=== PATIENT | female | born 1990 | race Hispanic/Latino ===

== ENCOUNTER 2018-01-17 16:49 | Inpatient (IN) | payer OTHER ==
[2018-01-17 17:17] VITALS: BMI 41.0
--- NOTE | 2018-01-17 17:42 | OBADHP ---
Datetime: 01/17/2018 17:36 Admit Comment, IP Provider: 27 yo at 39+2 presents for IOL for oligo. Denies leaking of flu id, reports good movement. Mild, irregular contractions reported. Feeling good, denies pain. Resting comfortably. Pelvic Type - PN: Adequate Extremities - PN: Normal Abdomen - PN: Normal Back - PN: Normal Breast - PN: Normal Lungs - PN: Normal Heart - PN: Normal Thyroid - PN: Normal Neurologic - PN: Normal HEENT - PN: Normal General - PN: Normal Presentation-Admit: Vertex FHR - Baseline A Provider: 160s Membranes, Provider: Intact Contraction Comments Provider: mild IP Hx Assessment: The History has been Reviewed and is Current Vital Signs Provider: Reviewed IP Chief Complaint: Scheduled induction of labor NICHD Variability Prov Fetus A: Moderate 6-25bpm NICHD Accel Fetus A IP Provider: 15X15 FHR Category Provider Fetus A: Category I NICHD Decel Fetus A IP Provider: None Dilatation, Provider: 2 Effacement, Provider: 0 Station, Provider: -3 Genitourinary Exam: Normal DTRs - PN: Normal IP Adm Impression: Term, intrauterine ; No Active Labor IP Admit Plan: Admit to unit; Initiate labor protocol; Initiate labor induction protocol
[2018-01-17] MEDS ORDERED: Lactated Ringer's 1,000 ML IV SCH (17:45)
--- NOTE | 2018-01-17 17:47 | OBPN ---
Datetime: 01/17/2018 17:45 IP Procedures Other: cEFM IP Progress Plan Other: 1 Liter LR IVFB and LR @ 125 ml/hr IP Progress Impression Other: tachycardia Datetime: 01/17/2018 17:36 Membranes, Provider: Intact Contraction Comments Provider: mild FHR - Baseline A Provider: 160s Presentation-Admit: Vertex Vital Signs Provider: Reviewed NICHD Accel Fetus A IP Provider: 15X15 FHR Category Provider Fetus A: Category I NICHD Variability Prov Fetus A: Moderate 6-25bpm Dilatation, Provider: 2 Effacement, Provider: 0 Station, Provider: -3 NICHD Decel Fetus A IP Provider: None
[2018-01-17 18:11] LABS: BASO # 0.1 K/uL (0.0-0.2); BASO % 0.9 % (0.0-2.0); EOS % 0.4 % (0.0-4.0); HEMOGLOBIN 11.1 g/dL (12.0-16.0); LYMPH # 1.6 K/uL (1.0-4.3); LYMPH % 15.5 % (20.0-40.0); MEAN CELL VOLUME 77.3 fl (81.0-99.0); MEAN CORPUSCULAR HEMOGLOBIN 25.7 pg (27.0-31.0); MEAN CORPUSCULAR HGB CONC 33.2 g/dL (33.0-37.0); MEAN PLATELET VOLUME 8.9 fl (7.2-11.7); MONO # 0.6 K/uL (0.0-0.8); MONO % 5.8 % (0.0-10.0); NEUT # 7.9 K/uL (1.8-7.0); NEUT % 77.4 % (50.0-75.0); RBC 4.31 Mil/uL (3.80-5.20); RED CELL DISTRIBUTION WIDTH 15.3 % (11.5-14.5); WHITE BLOOD COUNT 10.2 K/uL (4.8-10.8)
[2018-01-17] MEDS: Lactated Ringer's 1,000 ML IV SCH (19:34)
--- NOTE | 2018-01-17 22:47 | OBPN ---
Datetime: 01/17/2018 22:38 IP Progress Impression Other: induction of labor IP Progress Impression: Reassuring heart rate IP Informed Consent Obtain: Induction of Labor IP Progress Plan: Induction Membranes, Provider: Intact Contraction Comments Provider: irregular and mild every 3-4 minutes. FHR - Baseline A Provider: 133 Presentation-Admit: Vertex IP Progress Note Comment: continues to feel mild cramping. no bleeding, no leaking. discussed plan to start cytotec and take sleeping pill. patient agrees with plan Vital Signs Provider: Reviewed; Within Normal Limits FHR Category Provider Fetus A: Category I NICHD Variability Prov Fetus A: Moderate 6-25bpm NICHD Decel Fetus A IP Provider: None
--- NOTE | 2018-01-18 00:02 | OBPN ---
Datetime: 01/17/2018 23:56 Membranes, Provider: Intact Contraction Comments Provider: irregular, mild FHR - Baseline A Provider: 132 IP Progress Note Comment: cytotec [address] in posterior vagina. Patient medicated with Phenerga n 50mg po. will sleep for a while. NICHD Accel Fetus A IP Provider: 15X15 FHR Category Provider Fetus A: Category I NICHD Variability Prov Fetus A: Moderate 6-25bpm Dilatation, Provider: 2 Effacement, Provider: 30 Station, Provider: -3 NICHD Decel Fetus A IP Provider: None
[2018-01-18] MEDS ORDERED: Alum-Mag Hydrox-Simethicone Susp (30 mL) PO PRN (00:03)
[2018-01-18] MEDS: Lactated Ringer's 1,000 ML IV SCH (04:00)
[2018-01-18] MEDS ORDERED: Oxytocin 10 Units/ml Inj ONE (08:18)
--- NOTE | 2018-01-18 08:18 | OBPN ---
Datetime: 01/18/2018 08:06 IP Progress Impression: Normal progression of labor IP Progress Plan: Continue present management Membranes, Provider: Intact Contraction Comments Provider: q-3" 50 seconds moderate to palpation FHR - Baseline A Provider: 140' IP Progress Note Comment: labor s strong. toleratng well. desires tub for pain management. good p rogress of labor with nduction for oligo. fht's very reassurng , no variable decelerations noted. w ill continue to montor closely. Vital Signs Provider: Within Normal Limits FHR Category Provider Fetus A: Category I NICHD Variability Prov Fetus A: Moderate 6-25bpm Dilatation, Provider: 4 Effacement, Provider: 90 Station, Provider: -2 NICHD Decel Fetus A IP Provider: None
[2018-01-18] MEDS ORDERED: Oxytocin 10 Units/ml Inj IM ONE ×2 (08:43→09:39)
[2018-01-18] MEDS ORDERED: Benzocaine/Menthol SPRAY TOP PRN ×2 (09:38→13:04)
--- NOTE | 2018-01-18 11:34 | OBDS ---
DELIVERY PERSONNEL Nurse Water Inspector Certified: Angelica Bradford CNM Delivery Doctor: idalia Bradford CNM Scrub Nurse: Bridget Denis Regional Guide: Terri Pacheco RN MATERNAL INFORMATION Delivery Anesthesia: None Medications in Delivery: Pitocin 10mg IM Estimated Blood Loss (ml): 350 Placenta Cultured: No Maternal Complications: None Provider Comments: progressed quickly in labor to of viable female over intact perineum. waterbirth. baby with spontaneous cry, good tone. apgars 9 and 9. 1st stage of labor 3h23m, 2nd st age 10min 3rd stage 10 min placenta delivered spontaneously and intact. ebl 350 cc. baby with paren ts to [place]ager. LABOR SUMMARY EDC: 01/23/2018 00:00 No. Babies in Womb: 1 Attempted: No Labor Anesthesia: None LABOR INFORMATION Reason for Induction: Oligohydramnios Reason for Induction Other: onset of labor 01/18/18 @ 0500 Complete Dilatation: 01/18/2018 08:23 Cervical Ripening Agents: Cytotec @ 50 mcg PO Oxytocin: N/A Group B Beta Strep: Negative Antibiotics # of Doses: 0 Steroids Given: None Reason Steroids Not Administered: Not Applicable MEMBRANES Membranes Rupture Method: Spontaneous Rupture of Membranes: 01/18/2018 08:23 Length of Rupture (hrs): 0.17 Amniotic Fluid Color: Clear Amniotic Fluid Amount: Moderate Amniotic Fluid Odor: Normal STAGES OF LABOR Stage 2 hrs: 0 Stage 2 min: 10 Stage 3 hrs: 0 Stage 3 min: 10 VAGINAL DELIVERY Episiotomy: None Laceration Extension: N/A Laceration Type: None Laceration Repair: Not Applicable Initial Vag Sponge Count: 5 Final Vag Sponge Count: 5 Initial Vag Sharps Count: 0 Final Vag Sharps Count: 0 Sponge Count Correct: Yes Sharps Count Correct: N/A BABY A INFORMATION Delivery Date/Time: 01/18/2018 08:33 Method of Delivery: Vaginal Born in Route : No : N/A Forceps: N/A Vacuum Extraction: N/A Shoulder Dystocia : No SHOULDER DYSTOCIA BABY A Delivery Date/Time: 01/18/2018 08:33 PRESENTATION/POSITION BABY A Presentation: Cephalic Cephalic Presentation: Vertex Breech Presentation: N/A PLACENTA INFORMATION BABY A Placenta Delivery Time : 01/18/2018 08:43 Placenta Method of Delivery: Spontaneous Placenta Status: Delivered SCORES BABY A Heart Rate 1 min: >100 bpm Resp Effort 1 min: Good Cry Reflex Irritability 1 min: Cough or Sneeze or Pulls Away Muscle Tone 1 min: Active Motion Color 1 min: Body [place], Extremities Blue Resuscitation Effort 1 min: Tactile Stimulation SCORE 1 MIN: 9 Heart Rate 5 min: >100 bpm Resp Effort 5 min: Good Cry Reflex Irritability 5 min: Cough or Sneeze or Pulls Away Muscle Tone 5 min: Active Motion Color 5 min: Body [place], Extremities Blue Resuscitation Effort 5 min: Tactile Stimulation SCORE 5 MIN: 9 INFORMATION BABY A Gestational Age at Delivery: 39.0 Gestational Status: Term Outcome : Liveborn Infant Condition : Stable Infant Sex: Female IDENTIFICATION/MEDS BABY A ID Band Number: [id number] ID Band Location: Left Leg; Left Arm WEIGHT/LENGTH BABY A Birthweight (gms): 3260 Infant Weight (lb): 7 Weight (oz): 3 CORD INFORMATION BABY A No. Cord Vessels: 3 Nuchal Cord : N/A Cord Blood Taken: N/A Suction: None ASSESSMENT BABY A Infant Complications: None Complications Other: none Physical Findings at Delivery: Within Normal Limits Infant Respirations: Appears Normal Technical Clerk/ALS Called : No Infant Care By: Mike / Idalia Bradford CNM Transferred To: Remains with Mother
[2018-01-19 09:35] LABS: BASO % 0.2 % (0.0-2.0); EOS # 0.1 K/uL (0.0-0.7); EOS % 0.5 % (0.0-4.0); HEMOGLOBIN 10.8 g/dL (12.0-16.0); LYMPH # 2.3 K/uL (1.0-4.3); LYMPH % 20.2 % (20.0-40.0); MEAN CELL VOLUME 78.2 fl (81.0-99.0); MEAN CORPUSCULAR HEMOGLOBIN 25.4 pg (27.0-31.0); MEAN CORPUSCULAR HGB CONC 32.5 g/dL (33.0-37.0); MEAN PLATELET VOLUME 9.4 fl (7.2-11.7); MONO # 0.6 K/uL (0.0-0.8); MONO % 5.6 % (0.0-10.0); NEUT # 8.3 K/uL (1.8-7.0); NEUT % 73.5 % (50.0-75.0); RBC 4.23 Mil/uL (3.80-5.20); RED CELL DISTRIBUTION WIDTH 15.4 % (11.5-14.5); WHITE BLOOD COUNT 11.3 K/uL (4.8-10.8)
--- NOTE | 2018-01-19 17:18 | OBPPN ---
Datetime: 01/19/2018 17:16 PP Pain Prov: Within normal limits PP Nausea Prov: Denies PP Flatus Prov: Yes PP BM Prov: No PP Breasts Prov: Normal PP Heart Prov: Not Done PP Lungs Prov: Not Done PP Abdomen/Uterus Prov: Normal PP Lochia Prov: Normal PP Vulva/Perineum Prov: Normal PP CVA Tenderness Prov: Not Done PP Extremities Prov: Normal PP C/S Incision Prov: Not Applicable PP Progress Prov: Normal PP Impression Prov: Normal progression PP Plan Prov: Continue present management; Discharge IP PP Procedures: None Vital Signs Provider PP: Reviewed; Within Normal Limits
--- NOTE | 2018-01-19 17:22 | OBDCSUM ---
Datetime: 01/19/2018 17:18 Discharged to, Provider: Home Follow up at, Provider: ROBIN Disch Instr Activity: Normal activity Disch Instr Diet: Regular Discharge Instructions, Provider: Routine instructions given Discharge Diagnosis, Provider: Term Delivered Discharge Time: 01/19/2018 17:18 Follow up in weeks, Provider: 7-10 days Disch Referrals: None Contraception discussed, Prov: No Discharge Comment, Provider: Call with any new or worsening symptoms, increased bleeding, or lactati on difficulties. Eat iron rich foods. Continue all vitamins and supplements that you were previously taking.
[2018-01-20 04:53] VITALS: BP 112/54; PULSE 75; RESP 18; TEMP 98.5
== END 2018-01-19 21:00 | disposition home or self-care (01) | DRG 775 ==
LOC: H.EROB2 16:49 → H.L&D 17:07 → H.OB/GYN 01-18 12:30
PROVIDERS: ADMIT Advanced Practice Midwife; ATTEND Advanced Practice Midwife
PROC: 10E0XZZ Delivery of Products of Conception, External Approach (ICD-10-PCS; principal; 2018-01-17)
PROC: 0HQ9XZZ Repair Perineum Skin, External Approach (ICD-10-PCS; 2018-01-17)
PROC: 4A1HXCZ Monitoring of Products of Conception, Cardiac Rate, External Approach (ICD-10-PCS; 2018-01-17)
DX: O70.0 First degree perineal laceration during delivery (principal); Z37.0 Single live birth; Z3A.39 39 weeks gestation of pregnancy